=== PATIENT | female | born 1945 | race Caucasian/White ===

== ENCOUNTER 2018-01-27 15:48 | Emergency (ER) | payer OTHER, MEDICARE ==
[~2018-01-27] VITALS: Ht 167.6 cm; Wt 86.2 kg
[~2018-01-27 15:48] MED LIST: ALBIPROI INH; ALBU90OI; ALBU90OI61 INH; AMOCLA875 PO; ASCO1ER; ASPI325B PO; ASPI500; ASPI81EC; ATEN25 PO; ATOR40TA PO; AZIT250 PO; Amoxicillin500 MG PO; Aspirin EC81 MG PO; CEPH500 PO; CETI10 PO; CIPR500; CIPR500 PO; CLAR500; CLIN150 PO; CLIN300 PO; CODGUAEL PO; DIGESTIVE ENZYMES PO; DIPH50; DOXY100; ERGO50000 PO; FAMO20 PO; FLUT.05NI; GUAI600T33 PO; HYDGUAL120 PO; INSDET100 SC; LEVFLO500 PO; LEVLIO2; LISI5 PO; LOSA50 PO; METF500 PO; METO100 PO; METO50 PO; METO50ER PO; MOXI400 PO; MULVITA PO; Metformin HCl1000 MG PO; NAPR500 PO; NITR.4SL SL; OMEP20ER PO; PENVK500 PO; PRED20 PO; RANI150; RANI150 PO; ROSU10TA PO; RXCEPH500 PO; RXCODGUASY PO; RXHYDGUAS PO; THYR60; THYR60 PO; TRAM50 PO; [UNRECOGNIZED DRUG - REMARK]; [UNRECOGNIZED DRUG - REMARK]
== END 2018-01-27 18:15 | disposition home or self-care (01) ==
LOC: ER 15:48
DX: M18.9 Osteoarthritis of first carpometacarpal joint, unspecified (principal); M17.12 Unilateral primary osteoarthritis, left knee; M25.571 Pain in right ankle and joints of right foot; M54.6 Pain in thoracic spine; I10 Essential (primary) hypertension; E11.9 Type 2 diabetes mellitus without complications; E78.00 Pure hypercholesterolemia, unspecified; J45.909 Unspecified asthma, uncomplicated; Z88.8 Allergy status to other drugs, medicaments and biological substances; Z88.1 Allergy status to other antibiotic agents; Z88.2 Allergy status to sulfonamides; Z79.84 Long term (current) use of oral hypoglycemic drugs; Z79.82 Long term (current) use of aspirin; Y04.2XXA Assault by strike against or bumped into by another person, initial encounter
CPT/HCPCS: 29125; 73110; 73562-LT; 73610; 99283

== ENCOUNTER 2018-02-13 19:21 | Emergency (ER) | payer MEDICARE, OTHER ==
[~2018-02-13] VITALS: Ht 170.2 cm; Wt 186.0 kg
[~2018-02-13 19:21] MED LIST changes: +Cleocin HCl300 MG PO; +Zantac150 MG PO
[2018-02-13 20:12] LABS: BASOPHILS ABSOLUTE AUTO 0.03 K/mm3 (0.00-0.23); BASOPHILS PERCENT AUTO 0 % (0-2); EOSINOPHILS ABSOLUTE AUTO 0.14 K/mm3 (0.00-0.68); EOSINOPHILS PERCENT AUTO 2 % (0-6); Hematocrit 38.6 % (33.0-51.0); Hemoglobin 13.3 g/dL (11.5-16.0); IMMATURE GRAN ABSOLUTE AUTO 0.02 K/mm3 (0.00-0.10); IMMATURE GRAN PERCENT AUTO 0 % (0-1); LYMPHOCYTES ABSOLUTE AUTO 3.59 K/mm3 (0.84-5.20); LYMPHOCYTES PERCENT AUTO 42 % (21-46); MONOCYTES ABSOLUTE AUTO 0.72 K/mm3 (0.16-1.47); MONOCYTES PERCENT AUTO 8 % (4-13); Mean Corpuscular HGB 30.9 pg (26.0-34.0); Mean Corpuscular HGB Conc 34.5 g/dL (31.5-36.5); Mean Corpuscular Volume 90 fL (80-100); Mean Platelet Volume 10.5 fL (9.1-12.4); NEUTROPHILS ABSOLUTE AUTO 4.09 K/mm3 (1.96-9.15); NEUTROPHILS PERCENT AUTO 48 % (41-73); Platelet Count 326 K/mm3 (150-400); RDW Coefficient Variation 11.5 % (11.7-14.2); RDW Standard Deviation 37.4 fL (35.1-46.3); Red Blood Cell Count 4.31 M/mm3 (3.80-5.20); White Blood Cell Count 8.59 K/mm3 (4.00-11.30)
[2018-02-13 20:30] LABS: Anion Gap 9 mmol/L (6-16); Blood Urea Nitrogen 17 mg/dL (8-24); Bun/Creatinine Ratio 25.3 (12.0-20.0); C-REACTIVE PROTEIN, EXT RANGE 0.328 mg/dL (0.000-0.300); CO2, Blood 25 mmol/L (21-32); Calcium, Blood 9.5 mg/dL (8.5-10.1); Chloride, Blood 101 mmol/L (98-108); Creatinine, Blood 0.67 mg/dL (0.40-1.00); Glomerular Filtration Rate >60 (60-); Glucose, Blood 267 mg/dL (70-99); Potassium, Blood 4.1 mmol/L (3.5-5.5); Sodium, Blood 135 mmol/L (136-145)
[2018-02-13] MEDS ORDERED: Cleocin HCl300 MG PO (21:06)
== END 2018-02-13 21:33 | disposition home or self-care (01) ==
LOC: ER 19:21
PROVIDERS: Emergency Medicine
DX: L03.114 Cellulitis of left upper limb (principal); Z88.8 Allergy status to other drugs, medicaments and biological substances; Z88.2 Allergy status to sulfonamides; Z88.1 Allergy status to other antibiotic agents; Z79.899 Other long term (current) drug therapy; Z79.82 Long term (current) use of aspirin; Z79.84 Long term (current) use of oral hypoglycemic drugs; I10 Essential (primary) hypertension; E11.9 Type 2 diabetes mellitus without complications; E78.00 Pure hypercholesterolemia, unspecified; J45.909 Unspecified asthma, uncomplicated
CPT/HCPCS: 36415; 73120; 76882; 80048; 85025; 85651; 86140; 99284-25

== ENCOUNTER 2018-09-08 21:17 | Emergency (ER) | payer MEDICARE ==
[~2018-09-08] VITALS: Ht 167.6 cm; Wt 83.9 kg
[~2018-09-08 21:17] MED LIST changes: +Ultram50 MG PO
[2018-09-09 01:29] LABS: BASOPHILS ABSOLUTE AUTO 0.03 K/mm3 (0.00-0.23); BASOPHILS PERCENT AUTO 0 % (0-2); EOSINOPHILS ABSOLUTE AUTO 0.13 K/mm3 (0.00-0.68); EOSINOPHILS PERCENT AUTO 1 % (0-6); Hematocrit 38.7 % (33.0-51.0); IMMATURE GRAN ABSOLUTE AUTO 0.03 K/mm3 (0.00-0.10); IMMATURE GRAN PERCENT AUTO 0 % (0-1); LYMPHOCYTES ABSOLUTE AUTO 2.68 K/mm3 (0.84-5.20); LYMPHOCYTES PERCENT AUTO 22 % (21-46); MONOCYTES ABSOLUTE AUTO 1.23 K/mm3 (0.16-1.47); MONOCYTES PERCENT AUTO 10 % (4-13); Mean Corpuscular HGB 30.7 pg (26.0-34.0); Mean Corpuscular HGB Conc 33.6 g/dL (31.5-36.5); Mean Corpuscular Volume 92 fL (80-100); NEUTROPHILS ABSOLUTE AUTO 7.92 K/mm3 (1.96-9.15); NEUTROPHILS PERCENT AUTO 66 % (41-73); Platelet Count 260 K/mm3 (150-400); RDW Coefficient Variation 11.9 % (11.7-14.2); RDW Standard Deviation 39.4 fL (35.1-46.3); Red Blood Cell Count 4.23 M/mm3 (3.80-5.20); White Blood Cell Count 12.02 K/mm3 (4.00-11.30)
[2018-09-09] MEDS ORDERED: Crutch1 EACH MISC (01:40)
[2018-09-09 01:48] LABS: Anion Gap 11 mmol/L (6-16); Blood Urea Nitrogen 16 mg/dL (8-24); Bun/Creatinine Ratio 23.3 (12.0-20.0); CO2, Blood 25 mmol/L (21-32); Calcium, Blood 8.8 mg/dL (8.5-10.1); Chloride, Blood 98 mmol/L (98-108); Creatinine, Blood 0.69 mg/dL (0.40-1.00); Glomerular Filtration Rate >60 (60-); Glucose, Blood 350 mg/dL (70-99); Potassium, Blood 4.2 mmol/L (3.5-5.5); Sodium, Blood 134 mmol/L (136-145)
== END 2018-09-09 02:15 | disposition home or self-care (01) ==
LOC: ER 21:17
PROVIDERS: Emergency Medicine
DX: S72.115A Nondisplaced fracture of greater trochanter of left femur, initial encounter for closed fracture (principal); W19.XXXA Unspecified fall, initial encounter; Z88.8 Allergy status to other drugs, medicaments and biological substances; Z88.2 Allergy status to sulfonamides; Z88.1 Allergy status to other antibiotic agents; Z79.899 Other long term (current) drug therapy; Z79.84 Long term (current) use of oral hypoglycemic drugs; Z79.82 Long term (current) use of aspirin
CPT/HCPCS: 72100; 72192; 73502; 73562-LT; 73610; 80048; 85025; 96372; 96374; 99283-25; 99284-25; J3010

== ENCOUNTER → 2018-10-08 | Outpatient (CLI) | payer MEDICARE, OTHER ==
[~2018-10-08] MED LIST changes: +Crutch1 EACH MISC
[2018-10-09 14:38] LABS: Candida species (DNA Probe) Negative (NEGATIVE); G. vaginalis (DNA Probe) Positive (NEGATIVE); T. vaginalis (DNA Probe) Negative (NEGATIVE)
[2018-10-11 03:12] LABS: CHLAMYDIA TRACHOMATIS, NAA Negative (Negative); NEISSERIA GONORRHOEAE, NAA Negative (Negative)
== END | disposition home or self-care (01) ==
LOC: LAB SHORT 20:02 → LAB 20:02
PROVIDERS: Obstetrics & Gynecology
DX: R10.2 Pelvic and perineal pain (principal); N89.8 Other specified noninflammatory disorders of vagina; Z20.2 Contact with and (suspected) exposure to infections with a predominantly sexual mode of transmission
CPT/HCPCS: 87070; 87205; 87480; 87491; 87510; 87591; 87660

== ENCOUNTER 2018-11-22 18:49 | Observation (INO) | payer MEDICARE, OTHER ==
[~2018-11-22] VITALS: Ht 167.6 cm; Wt 85.0 kg
[~2018-11-22 18:49] MED LIST changes: +Aspirin EC325 MG PO; -Aspirin EC81 MG PO
[2018-11-22 19:16] LABS: BASOPHILS ABSOLUTE AUTO 0.03 K/mm3 (0.00-0.23); BASOPHILS PERCENT AUTO 0 % (0-2); EOSINOPHILS ABSOLUTE AUTO 0.17 K/mm3 (0.00-0.68); EOSINOPHILS PERCENT AUTO 2 % (0-6); Hematocrit 40.3 % (33.0-51.0); Hemoglobin 13.4 g/dL (11.5-16.0); IMMATURE GRAN ABSOLUTE AUTO 0.03 K/mm3 (0.00-0.10); IMMATURE GRAN PERCENT AUTO 0 % (0-1); LYMPHOCYTES ABSOLUTE AUTO 3.23 K/mm3 (0.84-5.20); LYMPHOCYTES PERCENT AUTO 34 % (21-46); MONOCYTES ABSOLUTE AUTO 0.83 K/mm3 (0.16-1.47); MONOCYTES PERCENT AUTO 9 % (4-13); Mean Corpuscular HGB 30.8 pg (26.0-34.0); Mean Corpuscular HGB Conc 33.3 g/dL (31.5-36.5); Mean Corpuscular Volume 93 fL (80-100); Mean Platelet Volume 10.4 fL (9.1-12.4); NEUTROPHILS ABSOLUTE AUTO 5.33 K/mm3 (1.96-9.15); NEUTROPHILS PERCENT AUTO 55 % (41-73); Platelet Count 282 K/mm3 (150-400); RDW Coefficient Variation 11.9 % (11.7-14.2); RDW Standard Deviation 40.8 fL (35.1-46.3); Red Blood Cell Count 4.35 M/mm3 (3.80-5.20); White Blood Cell Count 9.62 K/mm3 (4.00-11.30)
[2018-11-22 19:45] LABS: Alanine Aminotransfer (ALT/SGP 22 U/L (12-78); Albumin, Blood 3.8 g/dL (3.4-5.0); Albumin/Globulin Ratio 1.1 (0.8-1.8); Alk Phos 69 U/L (50-136); Anion Gap 9 mmol/L (6-16); Aspartate Aminotrans (AST/SGOT 11 U/L (12-37); Bilirubin, Total 0.4 mg/dL (0.1-1.0); Blood Urea Nitrogen 20 mg/dL (8-24); Bun/Creatinine Ratio 28.6 (12.0-20.0); CO2, Blood 24 mmol/L (21-32); Calcium, Blood 9.3 mg/dL (8.5-10.1); Chloride, Blood 103 mmol/L (98-108); Globulin, Blood 3.5 g/dL (2.2-4.0); Glomerular Filtration Rate >60 (60-); Glucose, Blood 171 mg/dL (70-99); Potassium, Blood 4.2 mmol/L (3.5-5.5); Sodium, Blood 136 mmol/L (136-145); Total Protein, Blood 7.3 g/dL (6.4-8.2); Troponin I <0.015 ng/mL (0.000-0.040)
[2018-11-22] MEDS ORDERED: LOSARTAN POTASS50 MG PO (21:38)
[2018-11-22] MEDS ORDERED: THYR60 PO (21:59)
[2018-11-23 03:55] LABS: Hematocrit 38.8 % (33.0-51.0); Hemoglobin 12.8 g/dL (11.5-16.0); Mean Corpuscular HGB 30.5 pg (26.0-34.0); Mean Corpuscular Volume 92 fL (80-100); Mean Platelet Volume 10.8 fL (9.1-12.4); Platelet Count 263 K/mm3 (150-400); RDW Standard Deviation 40.9 fL (35.1-46.3); White Blood Cell Count 8.42 K/mm3 (4.00-11.30)
[2018-11-23 04:17] LABS: Alanine Aminotransfer (ALT/SGP 21 U/L (12-78); Albumin, Blood 3.5 g/dL (3.4-5.0); Alk Phos 70 U/L (50-136); Anion Gap 9 mmol/L (6-16); Aspartate Aminotrans (AST/SGOT 8 U/L (12-37); Bilirubin, Total 0.5 mg/dL (0.1-1.0); Blood Urea Nitrogen 20 mg/dL (8-24); Bun/Creatinine Ratio 27.6 (12.0-20.0); CO2, Blood 26 mmol/L (21-32); Calcium, Blood 8.9 mg/dL (8.5-10.1); Chloride, Blood 103 mmol/L (98-108); Creatinine, Blood 0.73 mg/dL (0.40-1.00); Globulin, Blood 3.5 g/dL (2.2-4.0); Glomerular Filtration Rate >60 (60-); Glucose, Blood 294 mg/dL (70-99); Sodium, Blood 138 mmol/L (136-145)
[2018-11-23 04:21] LABS: CPK Creatine Kinase 46 U/L (26-193); Troponin I <0.015 ng/mL (0.000-0.040)
[2018-11-23 04:26] LABS: Free Thyroxine 0.91 ng/dL (0.70-1.60)
--- NOTE | 2018-11-23 05:50 | NUR ---
SHIFT SUMMARY PT ADMITTED FOR OBSERVATION STATUS WITH CHEST PAIN. DENIES HAVING ANY PAIN UPON ARRIVAL TO THE UNIT. PT ALERT AND ORIENTED, HAS A LOT OF QUESTIONS. TELEMETRY READS NSR RATE 84. PT STATES SHE GETS DIZZY WHEN UP, PT TOLD TO RING FOR ASSISTANCE WHEN NEEDING TO USE THE RESTROOM. NO ACUTE EVENTS OVER NIGHT, WILL CONTINUE TO MONITOR.
[2018-11-23 11:30] LABS: CPK Creatine Kinase 47 U/L (26-193); Troponin I <0.015 ng/mL (0.000-0.040)
--- NOTE | 2018-11-23 17:26 | NUR ---
SHIFT SUMMARY PATIENT WAS VERY ANXIOUS WHEN I CAME ON SHIFT. SPENT A LOT OF TIME EDUCATING THE PATIENT ON HER CURRENT CONDITION OF DIABETES, SHE FELT THOUGH SHE WAS NOT EDUCATED WHEN SHE GOT HER DIAGNOSIS. SHE HAD A DIETARY CONSULT TODAY AND SPOKE WITH PATRICIO TAO DIETITIAN WHO GAVE HER A LOT OF EDUCATION ON DIETS TO LOOK AT FOR DIABETICS. I ALSO GAVE THE PATIENT EDUCATION ON INSULIN AND BLOOD SUGAR CHECKS THORUGHOUT THE DAY. EVERY TIME I SAT DOWN WITH THE PATIENT SHE REQUESTED EDUCATION ABOUT SOME ASPECT OF ONE OF HER COMORBIDITIES. TOOK PATIENT'S HOME MEDS TO THE PHARMACY AFTER SHE HAD INFORMED ME SHE TOOK HER OWN MED AND THE HOSPITAL PROVIDED MEDICATION, THIS WAS AFTER MEDICATION PASS THIS AM. I DID NOTIFY DR DOLL ABOUT THE MEDICATION ISSUE AND RECHECKED BLOOD PRESSURE SOON AFTER. NO ACUTE CONCERNS ACCORDING TO THE PATIENT AT THIS TIME. SHE WILL NEED MORE PLANNING PRIOR TO DISCHARGE.
--- NOTE | 2018-11-24 04:06 | NUR ---
SHIFT SUMMARY NO ACUTE CHANGES THIS EVENING. CONTINUED TO GIVE PT DIABETIC TEACHING INCLUDING DIET TEACHING AND IMPORTANCE OF REGULAR BLOOD GLUCOSE TESTING. PT REPORTS THAT SHE HAD NOT BEEN TESTING HER BLOOD SUGAR AT HOME. OTHERWISE PT PLEASANT AND COOPERATIVE. AMBULATED INDEPENDENTLY TO THE RESTROOM. NO COMPLAINTS OF ANY CHEST PAIN/DISCOMFORT OR SOB. PT DID REPORT SOME GENERALIZED CHRONIC PAIN R/T FIBROMYALGIA. TELEMETRY ON THROUGHOUT THE NIGHT WITH NO CHANGES. SR IN THE 70'S. VSS. WILL CONTINUE TO MONITOR AND REPORT TO DAY RN.
[2018-11-24 04:49] LABS: BASOPHILS ABSOLUTE AUTO 0.02 K/mm3 (0.00-0.23); BASOPHILS PERCENT AUTO 0 % (0-2); EOSINOPHILS ABSOLUTE AUTO 0.16 K/mm3 (0.00-0.68); EOSINOPHILS PERCENT AUTO 2 % (0-6); Hemoglobin 13.4 g/dL (11.5-16.0); IMMATURE GRAN ABSOLUTE AUTO 0.01 K/mm3 (0.00-0.10); IMMATURE GRAN PERCENT AUTO 0 % (0-1); LYMPHOCYTES ABSOLUTE AUTO 3.13 K/mm3 (0.84-5.20); LYMPHOCYTES PERCENT AUTO 42 % (21-46); MONOCYTES ABSOLUTE AUTO 0.73 K/mm3 (0.16-1.47); MONOCYTES PERCENT AUTO 10 % (4-13); Mean Corpuscular HGB 30.4 pg (26.0-34.0); Mean Corpuscular HGB Conc 33.5 g/dL (31.5-36.5); Mean Corpuscular Volume 91 fL (80-100); Mean Platelet Volume 10.4 fL (9.1-12.4); NEUTROPHILS PERCENT AUTO 46 % (41-73); Platelet Count 263 K/mm3 (150-400); RDW Coefficient Variation 11.8 % (11.7-14.2); Red Blood Cell Count 4.41 M/mm3 (3.80-5.20); White Blood Cell Count 7.55 K/mm3 (4.00-11.30)
[2018-11-24 05:15] LABS: Alanine Aminotransfer (ALT/SGP 21 U/L (12-78); Albumin, Blood 3.6 g/dL (3.4-5.0); Alk Phos 70 U/L (50-136); Anion Gap 7 mmol/L (6-16); Aspartate Aminotrans (AST/SGOT 7 U/L (12-37); Bilirubin, Total 0.5 mg/dL (0.1-1.0); Blood Urea Nitrogen 18 mg/dL (8-24); Bun/Creatinine Ratio 24.6 (12.0-20.0); CHOL/HDL RATIO 5.3; CO2, Blood 29 mmol/L (21-32); Calcium, Blood 9.1 mg/dL (8.5-10.1); Chloride, Blood 103 mmol/L (98-108); Cholesterol 206 mg/dL (50-200); Creatinine, Blood 0.73 mg/dL (0.40-1.00); Globulin, Blood 3.5 g/dL (2.2-4.0); Glomerular Filtration Rate >60 (60-); Glucose, Blood 209 mg/dL (70-99); HDL Cholesterol 39 mg/dL (>39); LDL/HDL RATIO 3.2; Low Density Lipoprotein Chol 123 mg/dL (0-110); Magnesium, Blood 2.2 mg/dL (1.6-2.4); Sodium, Blood 139 mmol/L (136-145); Total Protein, Blood 7.1 g/dL (6.4-8.2); Triglycerides 220 mg/dL (30-160); Very Low Density Lipoprot Chol 44 mg/dL (6-32)
[2018-11-24] MEDS ORDERED: Humalog100 UNIT/1 SC (12:23)
[2018-11-24] MEDS ORDERED: EZET10 PO (12:24)
--- NOTE | 2018-11-24 13:50 | NUR ---
DISCHARGE SUMMARY NO ACUTE CONCERNS AT THIS TIME. INFORMATION GIVEN TO PATIENT AND HER . MEDICATIONS SENT TO THE PHARMACY.
== END 2018-11-24 13:13 | disposition home or self-care (01) ==
LOC: ER 18:49 → MEDS 18:50 → ENPENDDIS 11-24 12:46 → MEDS 11-24 13:13
PROVIDERS: Emergency Medicine; Internal Medicine; ADMIT Internal Medicine
DX: R07.9 Chest pain, unspecified (principal); I25.10 Atherosclerotic heart disease of native coronary artery without angina pectoris; E11.65 Type 2 diabetes mellitus with hyperglycemia; I10 Essential (primary) hypertension; J45.909 Unspecified asthma, uncomplicated; E78.00 Pure hypercholesterolemia, unspecified; M79.7 Fibromyalgia; R53.82 Chronic fatigue, unspecified; Z79.82 Long term (current) use of aspirin; Z79.899 Other long term (current) drug therapy; Z88.1 Allergy status to other antibiotic agents; Z88.2 Allergy status to sulfonamides; Z88.8 Allergy status to other drugs, medicaments and biological substances
CPT/HCPCS: 36415; 71046; 80053; 80061; 82550; 82947; 83735; 84439; 84443; 84484; 85025; 85027; 93005; 93010; 93306; 96372; 99285-25; G0378; J1650

== ENCOUNTER 2019-03-18 15:57 | Emergency (ER) | payer MEDICARE, OTHER ==
[~2019-03-18] VITALS: Ht 170.2 cm; Wt 81.7 kg
[~2019-03-18 15:57] MED LIST changes: +EZET10 PO; +Humalog100 UNIT/1 SC; +LOSARTAN POTASS50 MG PO
[2019-03-18 17:11] LABS: BASOPHILS ABSOLUTE AUTO 0.03 K/mm3 (0.00-0.23); BASOPHILS PERCENT AUTO 0 % (0-2); EOSINOPHILS ABSOLUTE AUTO 0.12 K/mm3 (0.00-0.68); EOSINOPHILS PERCENT AUTO 1 % (0-6); Hematocrit 40.6 % (33.0-51.0); Hemoglobin 13.3 g/dL (11.5-16.0); IMMATURE GRAN ABSOLUTE AUTO 0.02 K/mm3 (0.00-0.10); IMMATURE GRAN PERCENT AUTO 0 % (0-1); LYMPHOCYTES ABSOLUTE AUTO 3.24 K/mm3 (0.84-5.20); LYMPHOCYTES PERCENT AUTO 35 % (21-46); MONOCYTES ABSOLUTE AUTO 0.76 K/mm3 (0.16-1.47); MONOCYTES PERCENT AUTO 8 % (4-13); Mean Corpuscular HGB Conc 32.8 g/dL (31.5-36.5); Mean Corpuscular Volume 91 fL (80-100); Mean Platelet Volume 10.8 fL (9.1-12.4); NEUTROPHILS ABSOLUTE AUTO 5.06 K/mm3 (1.96-9.15); NEUTROPHILS PERCENT AUTO 55 % (41-73); Platelet Count 280 K/mm3 (150-400); RDW Coefficient Variation 11.6 % (11.7-14.2); Red Blood Cell Count 4.44 M/mm3 (3.80-5.20); White Blood Cell Count 9.23 K/mm3 (4.00-11.30)
[2019-03-18 17:33] LABS: Alanine Aminotransfer (ALT/SGP 25 U/L (12-78); Albumin/Globulin Ratio 1.1 (0.8-1.8); Alk Phos 75 U/L (50-136); Anion Gap 6 mmol/L (6-16); Aspartate Aminotrans (AST/SGOT 13 U/L (12-37); Bilirubin, Total 0.4 mg/dL (0.1-1.0); Blood Urea Nitrogen 20 mg/dL (8-24); Bun/Creatinine Ratio 32.8 (12.0-20.0); CO2, Blood 28 mmol/L (21-32); Calcium, Blood 9.4 mg/dL (8.5-10.1); Chloride, Blood 99 mmol/L (98-108); Creatinine, Blood 0.61 mg/dL (0.40-1.00); Globulin, Blood 3.7 g/dL (2.2-4.0); Glomerular Filtration Rate >60 (60-); Glucose, Blood 264 mg/dL (70-99); Potassium, Blood 4.1 mmol/L (3.5-5.5); Sodium, Blood 133 mmol/L (136-145); Total Protein, Blood 7.7 g/dL (6.4-8.2); Troponin I <0.015 ng/mL (0.000-0.040)
== END 2019-03-18 19:13 | disposition home or self-care (01) ==
LOC: ER 15:57
PROVIDERS: Physician Assistant
DX: R07.89 Other chest pain (principal); E11.65 Type 2 diabetes mellitus with hyperglycemia; Z88.1 Allergy status to other antibiotic agents; Z88.2 Allergy status to sulfonamides; Z88.8 Allergy status to other drugs, medicaments and biological substances; Z79.82 Long term (current) use of aspirin; Z79.84 Long term (current) use of oral hypoglycemic drugs; Z79.899 Other long term (current) drug therapy; I10 Essential (primary) hypertension
CPT/HCPCS: 71046; 80053; 84484; 85025; 93005; 93010; 99284-25

== ENCOUNTER → 2019-04-03 | Outpatient (CLI) | payer MEDICARE, OTHER | END | disposition home or self-care (01) | LOC: LAB SHORT 16:49 → LAB 16:49 | PROVIDERS: Obstetrics & Gynecology | DX: Z12.4 Encounter for screening for malignant neoplasm of cervix (principal); N89.8 Other specified noninflammatory disorders of vagina; R30.0 Dysuria; Z72.51 High risk heterosexual behavior | CPT/HCPCS: 87070; 87086; 87205; G0123 ==

== ENCOUNTER 2019-10-09 17:45 | Emergency (ER) | payer MEDICARE, OTHER ==
[~2019-10-09] VITALS: Ht 170.2 cm; Wt 86.2 kg
[2019-10-09] MEDS ORDERED: Voltaren100 GM TOP (19:57)
== END 2019-10-09 20:13 | disposition home or self-care (01) ==
LOC: ER 17:45
DX: S43.401A Unspecified sprain of right shoulder joint, initial encounter (principal); I10 Essential (primary) hypertension; Z88.2 Allergy status to sulfonamides; Z79.899 Other long term (current) drug therapy; X58.XXXA Exposure to other specified factors, initial encounter
CPT/HCPCS: 73030; 73562-LT; 73562-RT; 99284-25

== ENCOUNTER 2020-07-21 17:57 | Emergency (ER) | payer MEDICARE, OTHER ==
[~2020-07-21] VITALS: Ht 170.2 cm; Wt 84.4 kg
[~2020-07-21 17:57] MED LIST changes: +Voltaren100 GM TOP
[2020-07-21 18:22] LABS: BASOPHILS ABSOLUTE AUTO 0.03 K/mm3 (0.00-0.23); BASOPHILS PERCENT AUTO 0 % (0-2); EOSINOPHILS ABSOLUTE AUTO 0.12 K/mm3 (0.00-0.68); EOSINOPHILS PERCENT AUTO 1 % (0-6); Hematocrit 42.6 % (33.0-51.0); Hemoglobin 13.9 g/dL (11.5-16.0); IMMATURE GRAN ABSOLUTE AUTO 0.03 K/mm3 (0.00-0.10); IMMATURE GRAN PERCENT AUTO 0 % (0-1); LYMPHOCYTES PERCENT AUTO 36 % (21-46); MONOCYTES PERCENT AUTO 7 % (4-13); Mean Corpuscular HGB 29.8 pg (26.0-34.0); Mean Corpuscular HGB Conc 32.6 g/dL (31.5-36.5); Mean Corpuscular Volume 91 fL (80-100); Mean Platelet Volume 10.7 fL (9.1-12.4); NEUTROPHILS ABSOLUTE AUTO 5.22 K/mm3 (1.96-9.15); NEUTROPHILS PERCENT AUTO 56 % (41-73); Platelet Count 294 K/mm3 (150-400); RDW Coefficient Variation 11.8 % (11.7-14.2); RDW Standard Deviation 39.8 fL (35.1-46.3); Red Blood Cell Count 4.66 M/mm3 (3.80-5.20)
[2020-07-21 18:47] LABS: Alanine Aminotransfer (ALT/SGP 25 U/L (12-78); Albumin, Blood 3.7 g/dL (3.4-5.0); Alk Phos 77 U/L (50-136); Anion Gap 9 mmol/L (6-16); Aspartate Aminotrans (AST/SGOT 13 U/L (12-37); Bilirubin, Total 0.4 mg/dL (0.1-1.0); Blood Urea Nitrogen 17 mg/dL (8-24); Bun/Creatinine Ratio 24.5 (12.0-20.0); CO2, Blood 24 mmol/L (21-32); Calcium, Blood 9.5 mg/dL (8.5-10.1); Chloride, Blood 101 mmol/L (98-108); Creatinine, Blood 0.69 mg/dL (0.40-1.00); Globulin, Blood 3.6 g/dL (2.2-4.0); Glomerular Filtration Rate >60 (60-); Glucose, Blood 181 mg/dL (70-99); Potassium, Blood 4.1 mmol/L (3.5-5.5); Sodium, Blood 134 mmol/L (136-145); Total Protein, Blood 7.3 g/dL (6.4-8.2); Troponin I <0.015 ng/mL (0.000-0.040)
== END 2020-07-21 19:35 | disposition home or self-care (01) ==
LOC: ER 17:57
PROVIDERS: Emergency Medicine
DX: R07.9 Chest pain, unspecified (principal); I10 Essential (primary) hypertension; Z79.899 Other long term (current) drug therapy; Z88.2 Allergy status to sulfonamides; Z88.8 Allergy status to other drugs, medicaments and biological substances; Z79.82 Long term (current) use of aspirin; Z79.4 Long term (current) use of insulin
CPT/HCPCS: 36415; 71046; 80053; 84484; 85025; 93005; 93010; 99285-25

== ENCOUNTER 2020-08-16 21:05 | Observation (INO) | payer MEDICARE, BC ==
[~2020-08-16] VITALS: Ht 167.6 cm; Wt 83.1 kg
[~2020-08-16 21:05] MED LIST changes: -Metformin HCl1000 MG PO
[2020-08-16 21:44] LABS: BASOPHILS ABSOLUTE AUTO 0.03 K/mm3 (0.00-0.23); BASOPHILS PERCENT AUTO 0 % (0-2); EOSINOPHILS ABSOLUTE AUTO 0.12 K/mm3 (0.00-0.68); EOSINOPHILS PERCENT AUTO 1 % (0-6); Hematocrit 37.4 % (33.0-51.0); Hemoglobin 12.5 g/dL (11.5-16.0); IMMATURE GRAN ABSOLUTE AUTO 0.02 K/mm3 (0.00-0.10); IMMATURE GRAN PERCENT AUTO 0 % (0-1); LYMPHOCYTES ABSOLUTE AUTO 3.33 K/mm3 (0.84-5.20); LYMPHOCYTES PERCENT AUTO 37 % (21-46); MONOCYTES PERCENT AUTO 10 % (4-13); Mean Corpuscular HGB 29.8 pg (26.0-34.0); Mean Corpuscular HGB Conc 33.4 g/dL (31.5-36.5); Mean Corpuscular Volume 89 fL (80-100); NEUTROPHILS ABSOLUTE AUTO 4.67 K/mm3 (1.96-9.15); NEUTROPHILS PERCENT AUTO 52 % (41-73); RDW Coefficient Variation 12.1 % (11.7-14.2); RDW Standard Deviation 39.1 fL (35.1-46.3); White Blood Cell Count 9.07 K/mm3 (4.00-11.30)
[2020-08-16 21:47] LABS: Mean Platelet Volume 11.6 fL (9.1-12.4); Platelet Count 204 K/mm3 (150-400)
[2020-08-16] MEDS ORDERED: Isosorbide Mono30 MG PO (22:04)
[2020-08-16] MEDS ORDERED: DOXY100 PO (22:04)
[2020-08-16] MEDS ORDERED: AMOX875 PO (22:04)
[2020-08-16 22:34] LABS: Alanine Aminotransfer (ALT/SGP 26 U/L (12-78); Albumin, Blood 3.4 g/dL (3.4-5.0); Albumin/Globulin Ratio 1.1 (0.8-1.8); Alk Phos 70 U/L (50-136); Anion Gap 8 mmol/L (6-16); Aspartate Aminotrans (AST/SGOT 11 U/L (12-37); Bilirubin, Total 0.5 mg/dL (0.1-1.0); Blood Urea Nitrogen 18 mg/dL (8-24); Bun/Creatinine Ratio 30.6 (12.0-20.0); CO2, Blood 25 mmol/L (21-32); Calcium, Blood 8.6 mg/dL (8.5-10.1); Chloride, Blood 103 mmol/L (98-108); Creatinine, Blood 0.59 mg/dL (0.40-1.00); Free Thyroxine 1.23 ng/dL (0.70-1.60); Globulin, Blood 3.2 g/dL (2.2-4.0); Glomerular Filtration Rate >60 (60-); Glucose, Blood 230 mg/dL (70-99); Magnesium, Blood 2.1 mg/dL (1.6-2.4); Sodium, Blood 136 mmol/L (136-145); Thyroid Stimulating Hormone 0.471 uIU/mL (0.360-4.800); Total Protein, Blood 6.6 g/dL (6.4-8.2); Troponin I <0.015 ng/mL (0.000-0.040)
--- NOTE | 2020-08-17 05:10 | NUR ---
SHIFT SUMMARY PATIENT IS ALERT AND ORIENTED. PATIENT CAME TO ROOM FROM THE ED AT 0038, TRANSFERRED INDEPENDENTLY FROM STRETCHER TO BED. PATIENT ON CARDIZEM gtt @ 15ML/HR, PATIENT CONVERTED TO SINUS RHYTHM, gtt TITRATED TO 5ML/HR AT 0420. PATIENT IS SR IN THE 70s. 02 SATS >90% ON RA. METOPROLOL HELD DUE TO LOW BLOOD PRESSURES. PATIENT STATES SHE HAS AN ULCER ON HER TOE ON THE LEFT FOOT, SUPPLIES TO CLEAN WOUND AND BANDAGE IN ROOM BUT PATIENT REQUESTED THAT IT BE DONE WHEN SHE WOKE IN THE MORNING. PATIENT BECAME VERY ANXIOUS AND AGITATED YELLING THAT SHE NEEDS HER MEDICATIONS BECAUSE "SHE FORGOT TO TAKE ALL HER MEDICATION TODAY". CALLED AND GOT AN ORDER FOR THE MEDICATION, SEE EMAR. TRIED EXPLAINING TO THE PATIENT WHY I HELD HER METOPROLOL AND WHAT THE CARDIZEM gtt WAS FOR AND AFTER ABOUT AN HOUR THE PATIENT DECIDED SHE WAS FINE WITH IT. PATIENT CONTINUED TO YELL ABOUT HER CARE AND WHEN I TRIED TO EXPLAIN THINGS TO HER AND PROVIDE CARE, PATIENT WOULD YELL OVER THE TOP OF ME. INFORMED PATIENT AND PROVIDED TEACHING THAT SHE WAS NOT TO TAKE ANY HOME MEDICATION THAT SHE HAS WITH HER. PATIENT STATED SHE HAS NO HOT WATER AT HOME AND SOMETIMES FEELS UNSAFE. ORDERS FOR NYLON OPERATOR REFFERAL. PATIENTS MOOD WAS VERY SPORADIC AND PATIENT BECAME EASILY ANXIOUS AND AGITATED. PATIENT IS NOW SLEEPING. CALL LIGHT IS IN REACH, BED IN LOWEST POSITION, BED ALARM ON.
[2020-08-17 06:16] LABS: BASOPHILS ABSOLUTE AUTO 0.02 K/mm3 (0.00-0.23); BASOPHILS PERCENT AUTO 0 % (0-2); EOSINOPHILS ABSOLUTE AUTO 0.14 K/mm3 (0.00-0.68); EOSINOPHILS PERCENT AUTO 2 % (0-6); Hematocrit 38.6 % (33.0-51.0); Hemoglobin 12.6 g/dL (11.5-16.0); IMMATURE GRAN ABSOLUTE AUTO 0.02 K/mm3 (0.00-0.10); IMMATURE GRAN PERCENT AUTO 0 % (0-1); LYMPHOCYTES PERCENT AUTO 39 % (21-46); MONOCYTES ABSOLUTE AUTO 0.87 K/mm3 (0.16-1.47); MONOCYTES PERCENT AUTO 9 % (4-13); Mean Corpuscular HGB 29.9 pg (26.0-34.0); Mean Corpuscular HGB Conc 32.6 g/dL (31.5-36.5); Mean Corpuscular Volume 92 fL (80-100); Mean Platelet Volume 10.8 fL (9.1-12.4); NEUTROPHILS PERCENT AUTO 50 % (41-73); Platelet Count 285 K/mm3 (150-400); RDW Coefficient Variation 12.1 % (11.7-14.2); Red Blood Cell Count 4.22 M/mm3 (3.80-5.20); White Blood Cell Count 9.25 K/mm3 (4.00-11.30)
[2020-08-17 06:31] LABS: Alanine Aminotransfer (ALT/SGP 23 U/L (12-78); Albumin, Blood 3.2 g/dL (3.4-5.0); Alk Phos 69 U/L (50-136); Anion Gap 8 mmol/L (6-16); Aspartate Aminotrans (AST/SGOT 9 U/L (12-37); Bilirubin, Total 0.5 mg/dL (0.1-1.0); Blood Urea Nitrogen 17 mg/dL (8-24); Bun/Creatinine Ratio 27.2 (12.0-20.0); CO2, Blood 26 mmol/L (21-32); Calcium, Blood 8.9 mg/dL (8.5-10.1); Chloride, Blood 104 mmol/L (98-108); Creatinine, Blood 0.63 mg/dL (0.40-1.00); Globulin, Blood 3.1 g/dL (2.2-4.0); Glomerular Filtration Rate >60 (60-); Glucose, Blood 267 mg/dL (70-99); Potassium, Blood 4.2 mmol/L (3.5-5.5); Sodium, Blood 138 mmol/L (136-145); Total Protein, Blood 6.3 g/dL (6.4-8.2)
--- NOTE | 2020-08-17 07:30 | NUR ---
ASSUMED CARE: PT RESTING QUIETLY AT THIS TIME. NSR ON TELE IN 70S, AWAITING MD FOR ORAL CARDIAC MED ORDERS. CURRENTLY ON 5MG/HR CARDIZEM AT THIS TIME. NO ACUTE NEEDS OR CONCERNS.
--- NOTE | 2020-08-17 10:24 | NUR ---
Echocardiogram completed.
--- NOTE | 2020-08-17 11:01 | NUR ---
DR HUTCHISON CAME IN TO SEE PT AND INSTRUCTED RN TO REMOVE PT FROM CARDIZEM GTT. CARDIZEM GTT OFF AT THIS TIME. DR HUTCHISON DISCUSSING PT WITH CARDIOLOGY TO DETERMINE IF ANGIO IS NEEDED.
--- NOTE | 2020-08-17 12:10 | NUR ---
Spiritual care visit conducted. Patient is lying in bed and alert. Patient is very talkative and immediately tells me about her medical history, her current issues and her fears about her upcoming procedure. Patient shares about her Restoration mayra, her art work and her family unit complications. I listen empathically and provide prayer. Patient shows signs of increased peace and voices appreciation for the visit. I will continue to remain available to patient and family.
--- NOTE | 2020-08-17 15:00 | NUR ---
PT AND SPOUSE HAD QUESTIONS ABOUT MEDICATIONS AND TREATMENT FOR ATRIAL FIBRILLATION. MEDICAL CONDITION EXPLAINED, SYMPTOMS TO WATCH FOR AND WHAT VARIOUS NEW MEDICATIONS WERE FOR. PT ASKED IF ANXIETY CAN CAUSE CHEST PRESSURE WHICH NURSE RESPONDED IT COULD. PT THEN ASKED IF SHE SHOULD GOT TO ED FOR CHEST PRESSURE SINCE IT MAY BE ANXIETY. NURSE ADVISED TO NEVER MAKE AN ASSUMPTION WITH CHEST PAIN. HAND OUTS FOR ALL NEW MEDICATIONS GIVEN WHICH PT WILL REVIEW. DENIED FURTHER QUESTIONS OR CONCERNS.
--- NOTE | 2020-08-17 16:52 | NUR ---
PT EXPRESSED CONCERNS WITH ATTITUDES OF STAFF LAST PM, FELT LIKE PEOPLE WERE BEING CONDESCENDING. ALSO FELT THAT THERE HAS NOT BEEN AWARENESS WITH RISK OF COVID. WANTS PEOPLE TO WEAR GLOVES WHILE IN ROOM AND TO ONLY USE SOAP AND WATER INSTEAD OF RUBBING ALCOHOL. MESSAGE LEFT FOR PATIENT ADVOCATE AND SPOKE WITH PCU COORDINATOR FOR LEADER ROUNDING TOMORROW. PT SEEMED SATISFIED WITH THIS PLAN. ASKED FOR DRESSING CHANGE TO FOOT TO BE DONE AFTER SHOWER.
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
--- NOTE | 2020-08-18 00:35 | NUR ---
PATIENT IS ALERT AND ORIENTED. EXPLAINED EACH MEDICATION TO THE PATIENT THAT WAS GIVEN. PATIENT IS ANXIOUS AT TIMES WITH CARE. PATIENT REQUESTED A SHOWER AND SAID SHE WOULD CALL WHEN SHE WAS READY, PATIENT IS NOW SLEEPING. OFFERED TO HELP PATIENT CHANGE DRESSING ON HER TOE THAT SHE SAYS HAS AN ULCER AND PATIENT REFUSED SAYING SHE ONLY WOULD DO IT AFTER HER SHOWER. VSS, NO ACUTE CHANGES. PATIENT INDEPENDENT IN ROOM. CALL LIGHT IN REACH.
[2020-08-18 03:59] LABS: BASOPHILS ABSOLUTE AUTO 0.03 K/mm3 (0.00-0.23); BASOPHILS PERCENT AUTO 0 % (0-2); EOSINOPHILS ABSOLUTE AUTO 0.14 K/mm3 (0.00-0.68); EOSINOPHILS PERCENT AUTO 2 % (0-6); Hematocrit 37.1 % (33.0-51.0); IMMATURE GRAN ABSOLUTE AUTO 0.03 K/mm3 (0.00-0.10); IMMATURE GRAN PERCENT AUTO 0 % (0-1); LYMPHOCYTES ABSOLUTE AUTO 3.24 K/mm3 (0.84-5.20); LYMPHOCYTES PERCENT AUTO 37 % (21-46); MONOCYTES ABSOLUTE AUTO 0.82 K/mm3 (0.16-1.47); MONOCYTES PERCENT AUTO 9 % (4-13); Mean Corpuscular HGB 29.7 pg (26.0-34.0); Mean Corpuscular HGB Conc 32.3 g/dL (31.5-36.5); Mean Corpuscular Volume 92 fL (80-100); Mean Platelet Volume 10.9 fL (9.1-12.4); NEUTROPHILS ABSOLUTE AUTO 4.59 K/mm3 (1.96-9.15); NEUTROPHILS PERCENT AUTO 52 % (41-73); Platelet Count 302 K/mm3 (150-400); RDW Coefficient Variation 11.9 % (11.7-14.2); RDW Standard Deviation 40.6 fL (35.1-46.3); Red Blood Cell Count 4.04 M/mm3 (3.80-5.20); White Blood Cell Count 8.85 K/mm3 (4.00-11.30)
[2020-08-18 04:16] LABS: Anion Gap 8 mmol/L (6-16); Blood Urea Nitrogen 19 mg/dL (8-24); Bun/Creatinine Ratio 29.6 (12.0-20.0); CO2, Blood 26 mmol/L (21-32); Calcium, Blood 9.2 mg/dL (8.5-10.1); Chloride, Blood 105 mmol/L (98-108); Creatinine, Blood 0.64 mg/dL (0.40-1.00); Glomerular Filtration Rate >60 (60-); Glucose, Blood 197 mg/dL (70-99); Potassium, Blood 4.3 mmol/L (3.5-5.5); Sodium, Blood 139 mmol/L (136-145)
--- NOTE | 2020-08-18 05:04 | NUR ---
SHIFT SUMMARY PATIENT ALERT AND ORIENTED. OFFERED TO HELP PATIENT WITH SHOWER AND SHE STATED "NOT AT THIS TIME". TOLD PATIENT TO CALL WHEN SHE WAS READY AND I WOULD BE IN TO HELP HER. PATIENT REFUSING TO LET ME SEE HER TOE ULCER TILL AFTER SHE SHOWERS. 02 SATS >94% ON RA. VSS, NO ACUTE CHANGES. PATIENT INDEPENDENT IN ROOM. EKG DONE. PATIENT CURRENTLY SLEEPING. CALL LIGHT IN REACH.
--- NOTE | 2020-08-18 07:23 | NUR ---
Report recieved from ERIC RN. Pt lying in bed, eyes closed, resp even and unlabored, appears to be sleeping. Call light in reach. No needs identified at this time.
[2020-08-18] MEDS ORDERED: AMLO5 PO (11:53)
[2020-08-18] MEDS ORDERED: Aspir 8181 MG PO (11:53)
[2020-08-18] MEDS ORDERED: GLIP5 PO (11:54)
[2020-08-18] MEDS ORDERED: XARELTO20 MG PO (11:56)
--- NOTE | 2020-08-18 13:03 | NUR ---
Spiritual care visit conducted. Patient is sitting on EOB and alert. Patient is very talkative and tells me she would like prayer but then went on to a long list of things she wanted me to pray for and why. Patient mentions her and his bipolar condition, their mobile home and how it is bearly livable, her medical issues and the spiritual chung she feels she is going through. I gladly provided prayer for these things and more. Patient responds well and shows signs of increased peace.
--- NOTE | 2020-08-18 13:51 | NUR ---
DISCHARGE INSTRUCTIONS REVIEWED WITH PT INCLUDING RECONCILED MEDICATION LIST. PT HAS BEEN PROVIDED WITH PRINTED INFORMATION ABOUT EACH OF HER NEW PRESCRIPTION MEDICATIONS. MEDICATION PRESCRIPTIONS FAXED TO [facility] PER PT REQUEST. IV X 2 REMOVED, CATHETERS INTACT. PT HAS ALL BELONGINGS IN HER POSSESSION AT DISCHARGE. THIS RN ASSISTED PT TO DRESS HER SMALL WOUND ON HER L SECOND TOE. PT STATES SHE SEES A MEDICAL ADVISOR FOR THIS. PT PRESENT AT DISCHARGE AND PT WAS ESCORTED OUT VIA WHEELCHAIR. NO FURTHER QUESTIONS OR CONCERNS AT THIS TIME.
--- NOTE | 2020-08-18 18:35 | NUR ---
PT'S PHARMACY CALLED AND ASKED IF PT COULD BE PRESCRIBED SOMETHING LESS EXPENSIVE THAN XARELTO. CALL TO DR HUTCHISON WHO SUGGESTED PT CALL CARDIOLOGY TOMORROW TO GET SAMPLES. CALL TO PT WHO ASKED IF SHE COULD BE PUT ON PLAVIX INSTEAD SINCE IT'S CHEAPER. INFORMED PT THAT PLAVIX DOES NOT WORK THE SAME XARELTO. INFORMED HER THAT SHE NEEDS TO CALL HER SEWER LINE PHOTO INSPECTOR TOMORROW AND SUGGEST IT WITH THEM. SHE RECIEVED A DOSE TODAY SO SHE WONT NEED FURTHER UNTIL TOMORROW. PT AGREED TO CALL CARDIOLOGY TOMORROW.
== END 2020-08-18 14:13 | disposition home or self-care (01) ==
LOC: ER 21:05 → PCU 21:06
PROVIDERS: Internal Medicine; Physician Assistant; ADMIT Internal Medicine
DX: I25.118 Atherosclerotic heart disease of native coronary artery with other forms of angina pectoris (principal); I48.0 Paroxysmal atrial fibrillation; I10 Essential (primary) hypertension; I51.7 Cardiomegaly; E78.5 Hyperlipidemia, unspecified; M79.7 Fibromyalgia; E11.319 Type 2 diabetes mellitus with unspecified diabetic retinopathy without macular edema; E03.9 Hypothyroidism, unspecified; M19.90 Unspecified osteoarthritis, unspecified site; E11.65 Type 2 diabetes mellitus with hyperglycemia; Z79.84 Long term (current) use of oral hypoglycemic drugs; Z79.899 Other long term (current) drug therapy; Z23 Encounter for immunization; Z88.2 Allergy status to sulfonamides; Z88.8 Allergy status to other drugs, medicaments and biological substances
CPT/HCPCS: 36415; 71046; 80048; 80053; 82947; 83735; 83880; 84439; 84443; 84484; 85025; 93005; 93010; 93306; 96376; 99285-25; A9270; G0378

== ENCOUNTER 2020-09-02 12:18 | Emergency (ER) | payer MEDICARE, BC ==
[~2020-09-02] VITALS: Ht 167.6 cm; Wt 83.9 kg
[~2020-09-02 12:18] MED LIST changes: +AMLO5 PO; +AMOX875 PO; +Aspir 8181 MG PO; +DOXY100 PO; +GLIP5 PO; +Isosorbide Mono30 MG PO; +XARELTO20 MG PO
[2020-09-02 13:02] LABS: BASOPHILS ABSOLUTE AUTO 0.03 K/mm3 (0.00-0.23); BASOPHILS PERCENT AUTO 0 % (0-2); EOSINOPHILS ABSOLUTE AUTO 0.14 K/mm3 (0.00-0.68); EOSINOPHILS PERCENT AUTO 2 % (0-6); Hematocrit 38.5 % (33.0-51.0); Hemoglobin 12.6 g/dL (11.5-16.0); IMMATURE GRAN ABSOLUTE AUTO 0.02 K/mm3 (0.00-0.10); IMMATURE GRAN PERCENT AUTO 0 % (0-1); LYMPHOCYTES PERCENT AUTO 37 % (21-46); MONOCYTES ABSOLUTE AUTO 0.67 K/mm3 (0.16-1.47); MONOCYTES PERCENT AUTO 8 % (4-13); Mean Corpuscular HGB 30.5 pg (26.0-34.0); Mean Corpuscular HGB Conc 32.7 g/dL (31.5-36.5); Mean Corpuscular Volume 93 fL (80-100); Mean Platelet Volume 10.3 fL (9.1-12.4); NEUTROPHILS ABSOLUTE AUTO 4.59 K/mm3 (1.96-9.15); NEUTROPHILS PERCENT AUTO 53 % (41-73); Platelet Count 272 K/mm3 (150-400); RDW Standard Deviation 41.6 fL (35.1-46.3); Red Blood Cell Count 4.13 M/mm3 (3.80-5.20); White Blood Cell Count 8.65 K/mm3 (4.00-11.30)
[2020-09-02 13:31] LABS: Alanine Aminotransfer (ALT/SGP 29 U/L (12-78); Albumin, Blood 3.5 g/dL (3.4-5.0); Albumin/Globulin Ratio 0.9 (0.8-1.8); Alk Phos 61 U/L (50-136); Anion Gap 8 mmol/L (6-16); Aspartate Aminotrans (AST/SGOT 12 U/L (12-37); Bilirubin, Total 0.4 mg/dL (0.1-1.0); Blood Urea Nitrogen 23 mg/dL (8-24); Bun/Creatinine Ratio 37.3 (12.0-20.0); CO2, Blood 22 mmol/L (21-32); Calcium, Blood 8.8 mg/dL (8.5-10.1); Chloride, Blood 107 mmol/L (98-108); Creatinine, Blood 0.62 mg/dL (0.40-1.00); Globulin, Blood 3.7 g/dL (2.2-4.0); Glomerular Filtration Rate >60 (60-); Glucose, Blood 162 mg/dL (70-99); Potassium, Blood 4.4 mmol/L (3.5-5.5); Sodium, Blood 137 mmol/L (136-145); Total Protein, Blood 7.2 g/dL (6.4-8.2); Troponin I <0.015 ng/mL (0.000-0.040)
== END 2020-09-02 15:11 | disposition home or self-care (01) ==
LOC: ER 12:18
PROVIDERS: Emergency Medicine
DX: R07.9 Chest pain, unspecified (principal); Z79.82 Long term (current) use of aspirin; Z79.899 Other long term (current) drug therapy; Z79.84 Long term (current) use of oral hypoglycemic drugs; Z79.01 Long term (current) use of anticoagulants
CPT/HCPCS: 71045; 80053; 84484; 85025; 99285-25

== ENCOUNTER 2021-03-05 22:01 | Emergency (ER) | payer OTHER, MEDICARE, BC ==
[~2021-03-05] VITALS: Ht 170.2 cm; Wt 83.9 kg
== END 2021-03-06 03:00 | disposition home or self-care (01) ==
LOC: ER 22:01
DX: S70.11XA Contusion of right thigh, initial encounter (principal); M25.511 Pain in right shoulder; S70.01XA Contusion of right hip, initial encounter; E78.5 Hyperlipidemia, unspecified; E11.319 Type 2 diabetes mellitus with unspecified diabetic retinopathy without macular edema; I10 Essential (primary) hypertension; Z79.84 Long term (current) use of oral hypoglycemic drugs; Z88.2 Allergy status to sulfonamides; Z88.8 Allergy status to other drugs, medicaments and biological substances; Z79.899 Other long term (current) drug therapy; J45.909 Unspecified asthma, uncomplicated; W01.0XXA Fall on same level from slipping, tripping and stumbling without subsequent striking against object, initial encounter
CPT/HCPCS: 73502; 73700; 82947; 99284-25

== ENCOUNTER → 2021-04-05 | Outpatient (CLI) | payer MEDICARE, BC | END | disposition home or self-care (01) | LOC: LAB 12:30 → LAB SHORT 12:30 | DX: E03.9 Hypothyroidism, unspecified (principal) | CPT/HCPCS: 84443 ==

== ENCOUNTER 2023-03-02 19:00 | Observation (INO) | payer MEDICARE, BC ==
[~2023-03-02] VITALS: Ht 167.6 cm; Wt 89.1 kg
[2023-03-02 20:02] LABS: BASOPHILS ABSOLUTE AUTO 0.05 K/mm3 (0.00-0.23); BASOPHILS PERCENT AUTO 1 % (0-2); EOSINOPHILS ABSOLUTE AUTO 0.33 K/mm3 (0.00-0.68); EOSINOPHILS PERCENT AUTO 4 % (0-6); Hematocrit 33.9 % (33.0-51.0); Hemoglobin 11.4 g/dL (11.5-16.0); IMMATURE GRAN ABSOLUTE AUTO 0.02 K/mm3 (0.00-0.10); IMMATURE GRAN PERCENT AUTO 0 % (0-1); LYMPHOCYTES ABSOLUTE AUTO 2.89 K/mm3 (0.84-5.20); LYMPHOCYTES PERCENT AUTO 32 % (21-46); MONOCYTES ABSOLUTE AUTO 0.76 K/mm3 (0.16-1.47); MONOCYTES PERCENT AUTO 9 % (4-13); Mean Corpuscular HGB 30.6 pg (26.0-34.0); Mean Corpuscular HGB Conc 33.6 g/dL (31.5-36.5); Mean Corpuscular Volume 91 fL (80-100); Mean Platelet Volume 11.5 fL (9.1-12.4); NEUTROPHILS ABSOLUTE AUTO 4.93 K/mm3 (1.96-9.15); NEUTROPHILS PERCENT AUTO 55 % (41-73); Platelet Count 289 K/mm3 (150-400); RDW Coefficient Variation 12.3 % (11.7-14.2); RDW Standard Deviation 41.2 fL (35.1-46.3); Red Blood Cell Count 3.73 M/mm3 (3.80-5.20); White Blood Cell Count 8.98 K/mm3 (4.00-11.30)
[2023-03-02 20:03] LABS: Albumin, Blood 3.1 g/dL (3.4-5.0); Albumin/Globulin Ratio 0.9 (0.8-1.8); Bilirubin, Total 0.5 mg/dL (0.1-1.0); Bun/Creatinine Ratio 23.2 (12.0-20.0); Calcium, Blood 8.5 mg/dL (8.5-10.1); Creatinine, Blood 0.78 mg/dL (0.40-1.00); Globulin, Blood 3.5 g/dL (2.2-4.0); Potassium, Blood 5.2 mmol/L (3.5-5.5); Total Protein, Blood 6.6 g/dL (6.4-8.2)
--- NOTE | 2023-03-03 00:23 | NUR ---
PT CHART REVIEWED FOR ADMIT
[2023-03-03 02:31] VITALS: BP 158/71
--- NOTE | 2023-03-03 06:30 | NUR ---
PATIENT IS ALERT AND ORIENTED X4, COOPERATIVE WITH CARE. HTN, BUT OTHERWISE VSS. NPO OTHER THAN SIPS WITH MEDS. PIV SL. NO COMPLAINST OF CHEST PRESSURE, PAIN, OR SOB. WILL CONT TO MONITOR.
[2023-03-03 06:38] LABS: Bun/Creatinine Ratio 19.9 (12.0-20.0); Creatinine, Blood 0.75 mg/dL (0.40-1.00); Potassium, Blood 4.1 mmol/L (3.5-5.5)
[2023-03-03 08:02] VITALS: BP 111/64
--- NOTE | 2023-03-03 09:15 | NUR ---
stress test PT CALLED. DEMANDED TO SEE DR ROWELL BECAUSE SHE IS SURE THAT HE STRESS TEST IS THE WORSE POSSIBLE THING SHE CAN DO, IT WILL GIVE HER A HEARTATTACH OR MAKE HER HAVE CONGESTED HEART FAILURE. DR ROWELL CALLED AND PT REQUEST RELAID. CONTINUE POC.
--- NOTE | 2023-03-03 11:40 | NUR ---
MICHAEL WHILE PT WAS MEETING WITH DR ROWELL, SHE TOLD DR ROWELL THAT SHE DIDN'T WANT THE STRESS TEST. THEY WERE REVIEWING PT HOME MEDICATIONS, PT TOLD DR ROWELL THAT SHE HAD TAKEDN HER XARELTO AT ABOUT 0100 IN ER. PT CONFIRMED THAT SHE DIDN'T TELL ANYONE. WHEN THIS NURSE REVIEWED AND ADMINISTERED HER ORDERED MORNING MEDICATIONS, PT DID NOT TELL THIS NURSE THAT. SHE DID REFUSE ASA. SHE DID NOT TELL THIS NURSE UNTIL SHE WAS HAVING HER ECHO. DR ROWELL MADE AWARE BEFORE SHE WENT INTO SEE PT. CONTINUE POC.
[2023-03-03] MEDS ORDERED: NITR.4SL SL (12:07)
[2023-03-03] MEDS ORDERED: OMEP20ER PO (12:07)
--- NOTE | 2023-03-03 12:31 | NUR ---
Spiritual Care Call Back Pt. is awake in her room and ambulating from the bathroom when she welcomes my visit. Pt. is intiially pleasant but becomes unsettled about the nature of our fallen world. Listen with empathy and offer some spiritual direction. Consider deepr matters of mayra and belief. Prayed with Pt. and Pt. then Prayed for this straightening press operator. Pt. displayed evidence of a greater sense of peace and hope. A bible was delivered per the Pts. request.
--- NOTE | 2023-03-03 12:33 | NUR ---
SPOUCE SPOUCE HERE. PT SITTING UP EATING LUNCH. SHE IS NOW STALLING AND EATING VERY SLOWLY. HE KEEPS ASKING HER TO HURRY UP. HE'S TIRED. CONTINUE POC.
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
--- NOTE | 2023-03-05 12:38 | NUR ---
SYDNEE PHONED INTO [facility] AT PATIENTS REQUEST WAS NOT RECEVIED AT DISCHARGE
== END 2023-03-03 13:04 | disposition home or self-care (01) ==
LOC: ER 19:00 → MEDS 19:01
PROVIDERS: Student in an Organized Health Care Education/Training Program; ADMIT Internal Medicine
DX: I25.110 Atherosclerotic heart disease of native coronary artery with unstable angina pectoris (principal); I10 Essential (primary) hypertension; E11.9 Type 2 diabetes mellitus without complications; E78.5 Hyperlipidemia, unspecified; E03.9 Hypothyroidism, unspecified; I48.0 Paroxysmal atrial fibrillation; M79.7 Fibromyalgia; J45.909 Unspecified asthma, uncomplicated; Z88.2 Allergy status to sulfonamides; Z88.8 Allergy status to other drugs, medicaments and biological substances; Z79.82 Long term (current) use of aspirin; Z79.84 Long term (current) use of oral hypoglycemic drugs; Z79.01 Long term (current) use of anticoagulants; Z79.899 Other long term (current) drug therapy
CPT/HCPCS: 36415; 71046; 80048; 80053; 82947; 83880; 84484; 85025; 93005; 93010; 93306; 99285-25; A9270; G0378

== ENCOUNTER 2024-02-04 14:22 | Emergency (ER) | payer MEDICARE, BC ==
[~2024-02-04] VITALS: Ht 170.2 cm; Wt 90.7 kg
[2024-02-04] MEDS ORDERED: Metoprolol Tartrate 1 MG/ML 5 ML VIAL IV ONE (15:10)
[2024-02-04 15:29] LABS: BASOPHILS ABSOLUTE AUTO 0.02 K/mm3 (0.00-0.23); BASOPHILS PERCENT AUTO 0 % (0-2); EOSINOPHILS ABSOLUTE AUTO 0.21 K/mm3 (0.00-0.68); EOSINOPHILS PERCENT AUTO 2 % (0-6); Hematocrit 36.7 % (33.0-51.0); Hemoglobin 12.2 g/dL (11.5-16.0); IMMATURE GRAN ABSOLUTE AUTO 0.02 K/mm3 (0.00-0.10); IMMATURE GRAN PERCENT AUTO 0 % (0-1); LYMPHOCYTES ABSOLUTE AUTO 2.57 K/mm3 (0.84-5.20); LYMPHOCYTES PERCENT AUTO 27 % (21-46); MONOCYTES ABSOLUTE AUTO 0.86 K/mm3 (0.16-1.47); MONOCYTES PERCENT AUTO 9 % (4-13); Mean Corpuscular HGB 30.3 pg (26.0-34.0); Mean Corpuscular HGB Conc 33.2 g/dL (31.5-36.5); Mean Corpuscular Volume 91 fL (80-100); Mean Platelet Volume 10.7 fL (9.1-12.4); NEUTROPHILS ABSOLUTE AUTO 5.85 K/mm3 (1.96-9.15); NEUTROPHILS PERCENT AUTO 61 % (41-73); Platelet Count 320 K/mm3 (150-400); RDW Coefficient Variation 12.2 % (11.7-14.2); RDW Standard Deviation 40.9 fL (35.1-46.3); Red Blood Cell Count 4.02 M/mm3 (3.80-5.20); White Blood Cell Count 9.53 K/mm3 (4.00-11.30)
[2024-02-04 15:54] LABS: Albumin, Blood 3.5 g/dL (3.4-5.0); Bilirubin, Total 0.6 mg/dL (0.1-1.0); Bun/Creatinine Ratio 16.2 (12.0-20.0); Calcium, Blood 9.2 mg/dL (8.5-10.1); Creatinine, Blood 0.93 mg/dL (0.40-1.00); Globulin, Blood 3.6 g/dL (2.2-4.0); Potassium, Blood 4.6 mmol/L (3.5-5.5); Total Protein, Blood 7.1 g/dL (6.4-8.2)
[2024-02-04 17:51] LABS: Source, Urine Voided
[2024-02-04 18:05] LABS: Appearance, Urine Clear (Clear); Bilirubin, Urine Neg (Neg); Blood, Urine Neg (Neg); Glucose Qualitative, Urine Neg (Neg); Ketones, Urine Neg (Neg); Leukocyte Esterase, Urine 1+ (Neg); Nitrite, Urine Neg (Neg); Protein, Urine 1+ (Neg); Specific Gravity, Urine 1.005 (1.003-1.022); Urobilinogen, Urine NORM (Normal)
[2024-02-04 18:18] LABS: Color, Urine Pale Yellow (P-Yellow)
[2024-02-04 18:19] LABS: Bacteria Few /hpf; Red Blood Cells, Urine Not Seen /hpf (0-2); Squamous Epithelial Cells Rare /hpf (Few)
[2024-02-04] MEDS ORDERED: Diltiazem HCl 5 MG / ML 5ML Vial IV ONE (19:35)
[2024-02-04] MEDS ORDERED: MIRALAX17 GM PO (20:41)
[2024-02-04 20:45] VITALS: BP 134/83
== END 2024-02-04 21:16 | disposition home or self-care (01) ==
LOC: ER 14:22
PROVIDERS: Emergency Medicine
DX: I48.91 Unspecified atrial fibrillation (principal); K59.00 Constipation, unspecified; E03.9 Hypothyroidism, unspecified; I10 Essential (primary) hypertension; E11.319 Type 2 diabetes mellitus with unspecified diabetic retinopathy without macular edema; M19.90 Unspecified osteoarthritis, unspecified site; E78.5 Hyperlipidemia, unspecified; J45.909 Unspecified asthma, uncomplicated; Z79.84 Long term (current) use of oral hypoglycemic drugs; Z79.899 Other long term (current) drug therapy; Z88.2 Allergy status to sulfonamides; Z88.8 Allergy status to other drugs, medicaments and biological substances
CPT/HCPCS: 71045; 74018; 80053; 81001; 85025; 87086; 93005; 93010; 96374; 96375; 99285-25

== ENCOUNTER 2024-02-06 17:23 | Emergency (ER) | payer MEDICARE, BC ==
[~2024-02-06] VITALS: Ht 170.2 cm; Wt 113.4 kg
[~2024-02-06 17:23] MED LIST changes: +MIRALAX17 GM PO
[2024-02-06 17:36] VITALS: BP 132/85
== END 2024-02-06 17:44 | disposition home or self-care (01) ==
LOC: ER 17:23
DX: R00.2 Palpitations (principal); E03.9 Hypothyroidism, unspecified; M19.90 Unspecified osteoarthritis, unspecified site; I10 Essential (primary) hypertension; E11.319 Type 2 diabetes mellitus with unspecified diabetic retinopathy without macular edema; E78.5 Hyperlipidemia, unspecified; I48.91 Unspecified atrial fibrillation; Z79.899 Other long term (current) drug therapy; Z79.84 Long term (current) use of oral hypoglycemic drugs; Z88.2 Allergy status to sulfonamides; Z88.8 Allergy status to other drugs, medicaments and biological substances
CPT/HCPCS: 93005; 93010

== ENCOUNTER 2024-02-07 16:37 | Emergency (ER) | payer MEDICARE, BC ==
[~2024-02-07] VITALS: Ht 170.2 cm; Wt 92.5 kg
[2024-02-07 17:36] LABS: BASOPHILS ABSOLUTE AUTO 0.02 K/mm3 (0.00-0.23); BASOPHILS PERCENT AUTO 0 % (0-2); EOSINOPHILS PERCENT AUTO 2 % (0-6); Hematocrit 36.1 % (33.0-51.0); Hemoglobin 11.9 g/dL (11.5-16.0); IMMATURE GRAN ABSOLUTE AUTO 0.02 K/mm3 (0.00-0.10); IMMATURE GRAN PERCENT AUTO 0 % (0-1); LYMPHOCYTES ABSOLUTE AUTO 2.34 K/mm3 (0.84-5.20); LYMPHOCYTES PERCENT AUTO 26 % (21-46); MONOCYTES ABSOLUTE AUTO 0.79 K/mm3 (0.16-1.47); MONOCYTES PERCENT AUTO 9 % (4-13); Mean Corpuscular HGB 30.4 pg (26.0-34.0); Mean Corpuscular Volume 92 fL (80-100); NEUTROPHILS ABSOLUTE AUTO 5.73 K/mm3 (1.96-9.15); NEUTROPHILS PERCENT AUTO 63 % (41-73); Platelet Count 297 K/mm3 (150-400); RDW Coefficient Variation 12.2 % (11.7-14.2); RDW Standard Deviation 41.2 fL (35.1-46.3); Red Blood Cell Count 3.92 M/mm3 (3.80-5.20)
[2024-02-07 17:44] LABS: Albumin, Blood 3.5 g/dL (3.4-5.0); Albumin/Globulin Ratio 0.9 (0.8-1.8); Bilirubin, Total 0.4 mg/dL (0.1-1.0); Bun/Creatinine Ratio 21.6 (12.0-20.0); Calcium, Blood 8.9 mg/dL (8.5-10.1); Creatinine, Blood 0.93 mg/dL (0.40-1.00); Globulin, Blood 3.8 g/dL (2.2-4.0); Potassium, Blood 4.3 mmol/L (3.5-5.5); Total Protein, Blood 7.3 g/dL (6.4-8.2)
[2024-02-07 20:57] VITALS: BP 162/87
== END 2024-02-07 20:57 | disposition home or self-care (01) ==
LOC: ER 16:37
PROVIDERS: Physician Assistant
DX: R07.89 Other chest pain (principal); I10 Essential (primary) hypertension; Z88.8 Allergy status to other drugs, medicaments and biological substances; Z88.2 Allergy status to sulfonamides; Z79.899 Other long term (current) drug therapy; Z79.84 Long term (current) use of oral hypoglycemic drugs
CPT/HCPCS: 71046; 80053; 83880; 84484; 85025

== ENCOUNTER 2024-12-02 14:01 | Emergency (ER) | payer MEDICARE, BC ==
[~2024-12-02] VITALS: Ht 167.6 cm; Wt 96.2 kg
[2024-12-02 15:17] LABS: BASOPHILS ABSOLUTE AUTO 0.03 K/mm3 (0.00-0.23); BASOPHILS PERCENT AUTO 0 % (0-2); EOSINOPHILS ABSOLUTE AUTO 0.12 K/mm3 (0.00-0.68); EOSINOPHILS PERCENT AUTO 1 % (0-6); Hematocrit 33.8 % (33.0-51.0); Hemoglobin 11.2 g/dL (11.5-16.0); IMMATURE GRAN ABSOLUTE AUTO 0.03 K/mm3 (0.00-0.10); IMMATURE GRAN PERCENT AUTO 0 % (0-1); LYMPHOCYTES ABSOLUTE AUTO 2.25 K/mm3 (0.84-5.20); LYMPHOCYTES PERCENT AUTO 24 % (21-46); MONOCYTES ABSOLUTE AUTO 0.83 K/mm3 (0.16-1.47); MONOCYTES PERCENT AUTO 9 % (4-13); Mean Corpuscular HGB 29.9 pg (26.0-34.0); Mean Corpuscular HGB Conc 33.1 g/dL (31.5-36.5); Mean Corpuscular Volume 90 fL (80-100); Mean Platelet Volume 10.5 fL (9.1-12.4); NEUTROPHILS ABSOLUTE AUTO 6.25 K/mm3 (1.96-9.15); NEUTROPHILS PERCENT AUTO 66 % (41-73); Platelet Count 307 K/mm3 (150-400); RDW Coefficient Variation 12.8 % (11.7-14.2); Red Blood Cell Count 3.75 M/mm3 (3.80-5.20); White Blood Cell Count 9.51 K/mm3 (4.00-11.30)
[2024-12-02 15:43] LABS: Albumin, Blood 3.3 g/dL (3.4-5.0); Bilirubin, Total 0.6 mg/dL (0.1-1.0); Bun/Creatinine Ratio 28.5 (12.0-20.0); Calcium, Blood 9.1 mg/dL (8.5-10.1); Creatinine, Blood 0.77 mg/dL (0.40-1.00); Globulin, Blood 3.3 g/dL (2.2-4.0); Magnesium, Blood 2.2 mg/dL (1.6-2.4); Total Protein, Blood 6.6 g/dL (6.4-8.2)
[2024-12-02 15:56] VITALS: BP 160/86
== END 2024-12-02 19:10 | disposition home or self-care (01) ==
LOC: ER 14:01
PROVIDERS: Student in an Organized Health Care Education/Training Program
DX: R07.9 Chest pain, unspecified (principal); E03.9 Hypothyroidism, unspecified; I10 Essential (primary) hypertension; E11.319 Type 2 diabetes mellitus with unspecified diabetic retinopathy without macular edema; E78.5 Hyperlipidemia, unspecified; I48.91 Unspecified atrial fibrillation; Z88.2 Allergy status to sulfonamides; I25.10 Atherosclerotic heart disease of native coronary artery without angina pectoris; Z88.8 Allergy status to other drugs, medicaments and biological substances; Z79.84 Long term (current) use of oral hypoglycemic drugs; Z79.01 Long term (current) use of anticoagulants; Z79.899 Other long term (current) drug therapy; Z79.890 Hormone replacement therapy
CPT/HCPCS: 71046; 80053; 83735; 84484; 85025; 93005; 93010; 99285-25